=== PATIENT | male | born 1995 | race Hispanic/Latino ===

== ENCOUNTER 2024-07-08 14:07 | Emergency (ER) | payer SELFPAY ==
[2024-07-08] MEDS ORDERED: DIAZEPAM 10 MG/2 ML INJ SYRINGE ONE (14:42)
[2024-07-08 14:53] LABS: Absolute Eosinophils 0.1 K/uL (0-0.5); Absolute Lymphocytes (CBC) 3.4 K/uL (0.7-4.9); Absolute Monocytes 0.7 K/uL (0.1-1.3); Absolute Neutrophil 5.2 K/uL (1.8-8.0); Basophils % 0.5 % (0-1.3); Eosinophils % 0.9 % (0-4.4); Hematocrit 44.3 % (39.6-49.0); Hemoglobin 15.2 g/dL (13.6-17.9); MCH 30.5 pg (27.0-35.0); MCHC 34.4 g/dL (32.0-36.0); MCV 88.7 fL (80-100); MPV 7.7 fL (7.6-11.3); Monocytes % 7.2 % (3.3-12.3); Neutrophils % 55.4 % (41.7-73.7); Platelets 302 thou/uL (152-406); Red Cell Distribution Width 13.5 % (12.1-15.2)
--- NOTE | 2024-07-08 15:02 | RAD REPORT ---
EXAM: CT brain without contrast HISTORY: TIA COMPARISON: None TECHNIQUE: Multiple contiguous axial images were obtained and a CT of the brain without contrast. Sagittal and coronal reformats were performed. Automated exposure control, adjustment of the mA and/or kV according to patient size, and/or itera tive reconstruction. Unless otherwise specified, incidental findings do not require dedicated imaging follow-u FINDINGS: An intracranial bleed is not seen Ventricles are normal caliber No extra-axial fluid collection noted Low-density areas within the medial aspects of the frontal lobes bilaterally may be secondary to prio r trauma. No fluid within the visualized sinuses or mastoids noted. IMPRESSION: No acute intracranial abnormality noted. If the patient's symptoms persist MRI of the brain would be recommended.
[2024-07-08 15:03] LABS: Anion Gap 8.7 mEq/L (5.0-15.0); Potassium 3.7 mEq/L (3.5-5.1); Troponin High Sensitivity 3.7 pg/mL (<58.9)
--- NOTE | 2024-07-08 15:07 | RAD REPORT ---
EXAMINATION: CTA HEAD CLINICAL INDICATION: TIA TECHNIQUE: Axial CT images were obtained through the head after 100 cc Isovue-370 intravenous contras t utilizing angiographic protocol with 3D post-processing (maximum intensity projection images, volume rendered images and/or shaded surface rendered images). One or more of the following dose red uction techniques were used: Automated exposure control, adjustment of the mA and/or kV according to patient size, and/or iterative reconstruction. Unless otherwise specified, incidental findings do not require dedicated imaging follow-up. COMPARISON: None FINDINGS: Distal internal carotid, basilar, anterior cerebral, middle cerebral and posterior cerebral arteries do not demonstrate a significant stenosis An aneurysm not noted IMPRESSION: No acute vascular abnormality displayed
--- NOTE | 2024-07-08 15:07 | RAD REPORT ---
EXAMINATION: Neck Angio CLINICAL INDICATION: TIA. TECHNIQUE: Axial CT images were obtained from the aortic arch to the skull base after intravenous adm inistration of 100 cc Isovue-370 utilizing angiographic protocol. Multiplanar reformats, as well as 3D post-processing (maximum intensity projection images, volume rendered images and/or shaded surface rendered images) were generated and reviewed. One or more of the following dose reduction techniques were used: Automated exposure control, adjustment of the mA and/or kV according to patient size, and/or iterative reconstruction. Unless otherwise specified, incidental findings do not require dedicated imaging follow-up. COMPARISON: No prior exam. FINDINGS: The visualized aortic arch and great vessels do not demonstrate a significant abnormality Common carotid, internal carotid and external carotid arteries bilaterally unremarkable Vertebral arteries codominant. No significant stenosis noted. A dissection is not seen. Methods for NASCET criteria: mild stenosis, 0% to 49%; moderate, 50% to 69%; severe stenosis, 70% to 99% IMPRESSION: No acute vascular abnormality displayed
[2024-07-08 15:13] LABS: Specific Gravity 1.024 (1.005-1.030); Sqamous Epithelial <5 /HPF (None Seen); Urine Bacteria None Seen /HPF (<20); Urine Bilirubin NEGATIVE (Negative); Urine Blood Negative (Negative); Urine Clarity Clear (Clear); Urine Color Colorless (Yellow); Urine Culture Reflex Order NOT NEEDED; Urine Glucose NEGATIVE (Negative); Urine Ketones NEGATIVE (Negative); Urine Micro Reflex YN NO BILL MICROSCOPIC; Urine Nitrite NEGATIVE (Negative); Urine Protein NEGATIVE (Negative); Urine RBC None Seen /HPF (None Seen); Urine Urobilinogen Normal (Normal); Urine WBC None Seen /HPF (<5)
--- NOTE | 2024-07-08 15:32 | RAD REPORT ---
Procedure: Chest Single View History: Cough Comparison: none Findings: The lungs appear clear of acute infiltrate. No significant pleural effusion noted. The heart is normal size. IMPRESSION: No acute abnormality is displayed.
[2024-07-08 16:24] LABS: Barbiturates NEGATIVE (NEGATIVE); Benzodiazepines NEGATIVE (NEGATIVE); Cocaine NEGATIVE (NEGATIVE); METHAMPHETAM POSITIVE (NEGATIVE); Methadone NEGATIVE (NEGATIVE); Opiates NEGATIVE (NEGATIVE); Phencyclidine NEGATIVE (NEGATIVE); THC Cannibis NEGATIVE (NEGATIVE)
--- NOTE | 2024-07-08 16:38 | RAD REPORT ---
EXAMINATION: MRI BRAIN WITHOUT CONTRAST CLINICAL INDICATION:. TIA TECHNIQUE: Multiplanar multisequence MR images of the brain were obtained without intravenous contras t. Unless otherwise specified, incidental findings do not require dedicated imaging follow-up. COMPARISON: July 08, 2024 CT FINDINGS: Gradient echo sequences demonstrate areas of diminished signal within the frontal lobes bilaterally. There is also increased signal on T2-weighted sequences. Most likely the patient has had prior frontal lobe hematomas. No additional significant abnormal signal within the brain Diffusion weighted/ADC mapping does not reduction Ventricles are normal caliber. No extra-axial fluid collection. No fluid within the sinuses/mastoid seen IMPRESSION: No acute abnormalities displayed
--- NOTE | 2024-07-08 16:45 | ER ---
Nurse's Notes [facility] Name: Julian Retana Age: 28 yrs Sex: Male : 1995 Arrival Date: 07/08/2024 Time: 14:07 Bed 16 Private MD: Diagnosis: Slurred speech Presentation: 07/08 14:12 Chief complaint: EMS states: Working outside and suddenly experienced right sided rs5 facial droop, onset of symptoms \[id number], symptoms resolved prior to arrival. Coronavirus screen: At this time, the client does not indicate any symptoms associated with coronavirus-19. Ebola Screen: No symptoms or risks identified at this time. Initial Sepsis Screen: Does the patient meet any 2 criteria? No. Patient's initial sepsis screen is negative. Does the patient have a suspected source of infection? No. Patient's initial sepsis screen is negative. Risk Assessment: Do you want to hurt yourself or someone else? Patient reports no desire to harm self or others. Onset of symptoms was July 08, 2024. 14:12 Method Of Arrival: EMS: [facility] rs5 14:12 Acuity: SULEMAN 3 rs5 Triage Assessment: 14:15 General: Appears in no apparent distress. comfortable, Behavior is calm, cooperative. rs5 Pain: Denies pain. Historical: - Allergies: 14:15 No Known Allergies; rs5 - PMHx: 14:15 Hypertensive disorder; rs5 - PSHx: 14:15 None; rs5 - Immunization history:: Adult Immunizations up to date. - Infectious Disease History:: Denies. - Social history:: Smoking status: Patient denies any tobacco usage or history of. Screenin:12 [facility] ED Fall Risk Assessment (Adult) History of falling in the last 3 months, rs5 including since admission No falls in past 3 months (0 pts) Confusion or Disorientation No (0 pts) Intoxicated or Sedated No (0 pts) Impaired Gait No (0 pts) Mobility Assist Device Used No (0 pt) Altered Elimination No (0 pt) Score/Fall Risk Level 0 - 2 = Low Risk Oriented to surroundings, Maintained a safe environment. Abuse screen: Denies threats or abuse. Nutritional screening: No deficits noted. Tuberculosis screening: No symptoms or risk factors identified. Assessment: 14:12 General: Appears in no apparent distress. comfortable, Behavior is calm, cooperative. rs5 Pain: Denies pain. Neuro: Level of Consciousness is awake, alert, obeys commands, Oriented to person, place, time, situation, Electronic Technician are equal bilaterally Moves all extremities. Gait is steady, Speech is normal, Facial symmetry appears normal, Pupils are PERRLA, Pupil Size: 3 mm Intact. Cardiovascular: Patient's skin is warm and dry. Respiratory: Airway is patent Respiratory effort is even, unlabored, Respiratory pattern is regular, symmetrical. GI: Abdomen is round non-distended, Abd is soft and non tender X 4 quads. : No signs and/or symptoms were reported regarding the genitourinary system. EENT: No signs and/or symptoms were reported regarding the EENT system. Derm: Skin is intact, Skin is pink, warm \T\ dry. Musculoskeletal: Range of motion: intact in all extremities. 15:13 Reassessment: Patient and/or family updated on plan of care and expected duration. Pain rs5 level reassessed. Patient is alert, oriented x 3, equal unlabored respirations, skin warm/dry/pink. 16:11 Reassessment: Patient and/or family updated on plan of care and expected duration. Pain rs5 level reassessed. Patient is alert, oriented x 3, equal unlabored respirations, skin warm/dry/pink. 17:00 Reassessment: pt left before signing discharge papers. rs5 Vital Signs: 14:12 BP 155 / 81; Pulse 70; Resp 17; Temp 97.9(O); Pulse Ox 99% ; rs5 15:13 BP 141 / 88; Pulse 71; Resp 17; Pulse Ox 99% on R/A; rs5 16:50 BP 137 / 81; Pulse 70; Resp 17; Pulse Ox 99% on R/A; rs5 NIH Stroke Scale Scores: 14:15 NIHSS Score: 0 rs5 ED Course: 14:11 Patient arrived in ED. rs5 14:12 Patient has correct armband on for positive identification. Placed in gown. Bed in low rs5 position. Call light in reach. Side rails up X2. 14:15 Triage completed. rs5 14:15 No provider procedures requiring assistance completed. Inserted saline lock: 22 gauge rs5 in left antecubital area, using aseptic technique. Blood collected. Flushed with 10 mL NS. 14:17 Hancock, Ramirez, MD is Attending Physician. ec2 14:45 CT Neck Angio In Process Unspecified. EDMS 14:46 Head angio In Process Unspecified. EDMS 14:48 CT Head Brain wo Cont In Process Unspecified. EDMS 15:12 Farshad Guerra, RN is Primary Nurse. rs5 15:16 XRAY Chest (1 view) In Process Unspecified. EDMS 16:20 MRI - Brain Wo Cont In Process Unspecified. EDMS 16:44 Rian Chew MD is Referral Physician. ec2 16:50 Provided Education on: discharge instructions . rs5 16:58 IV discontinued, intact, bleeding controlled, No redness/swelling at site. Pressure rs5 dressing applied. Administered Medications: 16:46 Not Given (Patient Refused): [id number] mg IVP See Administration Instructions; as rs5 needed for anxiety or MRI Medication: 15:13 VIS not applicable for this client. rs5 Outcome: 16:44 Discharge ordered by MD. ec2 16:58 Discharged to home ambulatory, rs5 16:58 Condition: stable rs5 16:58 Discharge instructions given to patient, family, Instructed on discharge instructions, follow up and referral plans. Demonstrated understanding of instructions, follow-up care, 17:00 Patient left the ED. rs5 NIH Stroke Scale - NIH Stroke Score Date: 07/08/2024 Time: 14:15 Total Score = 0 10. Dysarthria (speech clarity - read or repeat words) - 0(Normal) 11. Extinction and Inattention (visual/tactile/auditory/spatial/personal) - 0(No abnormality) 1a. Level of Consciousness (LOC) - 0(Alert) 1b. Level of Consciousness (LOC) (Month \T\ Age) - 0(Both) 1c. LOC Commands (Open \T\ Closes Eyes/Earth Auger Operator) - 0(Both) 2. Best Gaze (Lateral Gaze Paresis) - 0(Normal) 3. Visual Field Loss - 0(No visual loss) 4. Facial Palsy - 0(Normal) 5a. Left Arm: Motor (10-second hold) - 0(No drift) 5b. Right Arm: Motor (10-second hold) - 0(No drift) 6a. Left Leg: Motor (5-second hold - always test supine) - 0(No drift) 6b. Right Leg: Motor (5-second hold - always test supine) - 0(No drift) 7. Limb Ataxia (finger/nose \T\ heel/constantino - test with eyes open) - 0(Absent) 8. Sensory Loss (pinprick arms/legs/face) - 0(Normal) 9. Best Language: Aphasia (description/naming/reading) - 0(No aphasia) Initials: rs5 Signatures: Dispatcher [employer] Farshad Han RN RN rs5 Ramirez Hancock MD MD ec2 Corrections: (The following items were deleted from the chart) 18:27 18:00 BP 137 / 81; Pulse 70bpm; Resp 17bpm; Pulse Ox 99% RA; rs5 rs5
--- NOTE | 2024-07-08 16:45 | EDPHYS ---
Physician Documentation [facility] Name: Julian Retana Age: 28 yrs Sex: Male : 1995 Arrival Date: 07/08/2024 Time: 14:07 Bed 16 Private MD: ED Physician Ramirez Hancock HPI: 07/08 14:45 This 28 yrs old Male presents to ER via EMS with complaints of Slurred Speech. ec2 14:45 Patient arrives today for evaluation of slurred speech. Patient reportedly had a bout ec2 of slurred speech as well as facial droop which is since resolved. Patient reportedly is back to baseline. No falls injuries or trauma. No recent illnesses. No significant medical problems. 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 Historical: - Allergies: 14:15 No Known Allergies; rs5 - PMHx: 14:15 Hypertensive disorder; rs5 - PSHx: 14:15 None; rs5 - Immunization history:: Adult Immunizations up to date. - Infectious Disease History:: Denies. - Social history:: Smoking status: Patient denies any tobacco usage or history of. ROS: 14:45 Constitutional: as per hpi ec2 Exam: 14:45 Constitutional: GEN: NAD Head: atraumatic Eyes: EOMI Ears: External ears are ec2 normal. CV: regular rate LUNGS: no respiratory distress ABD: non-distended SKIN: no evidence of rashes MSK: no evidence of trauma. Neuro: Cranial nerves II through XII intact, strength intact all 4 extremities, no pronator drift, sensation tact throughout Vital Signs: 14:12 BP 155 / 81; Pulse 70; Resp 17; Temp 97.9(O); Pulse Ox 99% ; rs5 15:13 BP 141 / 88; Pulse 71; Resp 17; Pulse Ox 99% on R/A; rs5 16:50 BP 137 / 81; Pulse 70; Resp 17; Pulse Ox 99% on R/A; rs5 NIH Stroke Scale Scores: 14:15 NIHSS Score: 0 rs5 MDM: 14:45 Data reviewed: vital signs. ED course: Patient arrives today for evaluation of slurred ec2 speech as well as possible facial droop which is since resolved and he has a normal neurologic examination on our evaluation. Will obtain a stroke workup along with MRI. Differential includes TIA, electrolyte disturbances, anemia, drug use.. 15:22 ED course: Metabolic profile reassuring, CBC reassuring, urine noninfectious appearing. ec2 Troponin within normal ranges. CT angio of the head and neck as well as CT scan of the head showed no acute process. Pending MRI. . 16:44 ED course: MRI of the brain shows no acute intra cranial abnormality. On reassessment ec2 no recurrence of symptoms. Will discharge home. Return precautions given. . 16:44 Patient medically screened. ec2 07/08 14:18 Order name: Basic Metabolic Panel; Complete Time: 15:21 ec2 07/08 14:18 Order name: CBC with Diff; Complete Time: 15:21 ec2 07/08 14:18 Order name: Troponin HS; Complete Time: 15:21 ec2 07/08 14:18 Order name: UDS; Complete Time: 16:27 ec2 07/08 14:18 Order name: UAM; Complete Time: 15:21 ec2 07/08 14:18 Order name: XRAY Chest (1 view); Complete Time: 15:35 ec2 07/08 14:18 Order name: CT Neck Angio; Complete Time: 15:21 ec2 07/08 14:18 Order name: MRI - Brain Wo Cont; Complete Time: 16:44 ec2 07/08 14:31 Order name: CT Head Brain wo Cont; Complete Time: 15:21 ec2 07/08 14:32 Order name: Head angio; Complete Time: 15:21 EDMS 07/08 14:18 Order name: Cardiac monitoring; Complete Time: 15:14 ec2 07/08 14:18 Order name: EKG - Nurse/Tech; Complete Time: 15:14 ec2 07/08 14:18 Order name: IV Saline Lock; Complete Time: 15:14 ec2 07/08 14:18 Order name: Labs collected and sent; Complete Time: 15:14 ec2 07/08 14:18 Order name: O2 Per Protocol; Complete Time: 15:14 ec2 07/08 14:18 Order name: O2 Sat Monitoring; Complete Time: 15:14 ec2 Administered Medications: 16:46 Not Given (Patient Refused): mg IVP See Administration Instructions; as rs5 needed for anxiety or MRI Disposition Summary: 07/08/24 16:44 Discharge Ordered Notes: Location: Home ec2 Condition: Stable ec2 Diagnosis - Slurred speech ec2 Followup: ec2 - With: Rian Chew MD - When: - Reason: Recheck today's complaints Discharge Instructions: - Discharge Summary Sheet ec2 - Transient Ischemic Attack ec2 Forms: - Medication Reconciliation Form ec2 - Antibiotic Education ec2 - Prescription Opioid Use ec2 - Patient Portal Instructions ec2 - Leadership Thank You Letter ec2 NIH Stroke Scale - NIH Stroke Score Date: 07/08/2024 Time: 14:15 Total Score = 0 10. Dysarthria (speech clarity - read or repeat words) - 0(Normal) 11. Extinction and Inattention (visual/tactile/auditory/spatial/personal) - 0(No abnormality) 1a. Level of Consciousness (LOC) - 0(Alert) 1b. Level of Consciousness (LOC) (Month \T\ Age) - 0(Both) 1c. LOC Commands (Open \T\ Closes Eyes/Campus Supervisor) - 0(Both) 2. Best Gaze (Lateral Gaze Paresis) - 0(Normal) 3. Visual Field Loss - 0(No visual loss) 4. Facial Palsy - 0(Normal) 5a. Left Arm: Motor (10-second hold) - 0(No drift) 5b. Right Arm: Motor (10-second hold) - 0(No drift) 6a. Left Leg: Motor (5-second hold - always test supine) - 0(No drift) 6b. Right Leg: Motor (5-second hold - always test supine) - 0(No drift) 7. Limb Ataxia (finger/nose \T\ heel/constantino - test with eyes open) - 0(Absent) 8. Sensory Loss (pinprick arms/legs/face) - 0(Normal) 9. Best Language: Aphasia (description/naming/reading) - 0(No aphasia) Initials: rs5 Signatures: Dispatcher [employer] EDMS Farshad Guerra RN RN rs5 Ramirez Hancock MD MD ec2 Corrections: (The following items were deleted from the chart) 14:18 14:18 Chest Single View+RAD.RAD.BRZ ordered. EDMS EDMS 14:18 14:18 Neck Angio+CT.RAD.BRZ ordered. EDMS EDMS 14:18 14:18 Brain Wo Cont+MRI.RAD.BRZ ordered. EDMS EDMS 14:31 14:31 Head Brain Wo Cont+CT.RAD.BRZ ordered. EDMS EDMS
[2024-07-08 19:33] VITALS: O2SAT 99
[2024-07-08 19:34] VITALS: BP 155/81; TEMP 97.9
== END 2024-07-08 17:00 | disposition home or self-care (01) ==
LOC: ER 14:07
DX: R47.81 Slurred speech (principal)
CPT/HCPCS: 36415; 70450; 70496; 70498; 70551; 71045; 80048; 80307; 81001; 84484; 85025; 99284; J3360; Q9967